=== PATIENT | female | born 1935 | race Caucasian/White ===

== ENCOUNTER → 2016-07-17 | Outpatient (CLI) | payer MEDICARE ==
[~2016-07-17] MED LIST: ASPI-558 PO; CALC1TAB42 PO; CHOL100018 PO; DEXA4TAB PO; DILT30TA3 PO; ESTR42.5 VAGINALLY; FLAX100032 PO; LORA10TA7 PO; MULT-806 PO
--- NOTE | 2016-07-17 11:31 | DI ---
Indication: ITS.REASON: M54.5 LBP low back pain radiating into both hips worsening in the past three months. No reported injury. PROCEDURE: MRI LUMBAR SPINE W/O CONTRAST: Encounter: Initial Comparison: None Technique: Multiplanar multisequence MR imaging of the lumbar spine was performed without contrast. Findings: Alignment of the lumbar spine shows levoscoliosis. No acute fracture identified. Degenerative endplate edema at L3-L4, L4-L5 and L5-S1. Vertebral body heights are maintained. Conus medullaris terminates normally at L1-L2. The paraspinal soft tissues are unremarkable. Segmental analysis: L1-L2: Normal L2-L3: Disk bulging with mild disk height loss contributing to mild central canal narrowing. Degenerative facet disease with mild bilateral neural foraminal stenosis. L3-L4: Broad central disk protrusion with degenerative facet disease contributing to mild central canal narrowing. Narrowing of the lateral recess disease with moderate right and mild left neural foraminal stenosis. L4-L5: Degenerative facet disease with a right foraminal and lateral protrusion superimposed upon a small disk bulge. Mild central canal narrowing. Ligamentum flavum buckling impressing upon the traversing right-sided nerve roots. There is also severe right neural foraminal stenosis with some impingement on the exiting L4 nerve root. Moderate to severe left neural foraminal stenosis. L5-S1: Disk height loss with a disk osteophyte complex. No central canal stenosis. Mild degenerative facet disease contributing to moderate right and severe left neural foraminal stenosis. Impression: Scoliosis with multilevel degenerative disk and facet disease as above with regions of nerve root impingement. .
== END ==
LOC: IMA 09:48
PROVIDERS: ATTEND Physician Assistant Surgical
DX: M41.9 Scoliosis, unspecified (principal); M47.26 Other spondylosis with radiculopathy, lumbar region; M47.27 Other spondylosis with radiculopathy, lumbosacral region; M51.16 Intervertebral disc disorders with radiculopathy, lumbar region; M54.5 Low back pain